=== PATIENT | female | born 1990 | race African-American/Black ===

== ENCOUNTER → 2018-02-23 | Day surgery (SDC) | payer OTHER ==
[~2018-02-23] MED LIST: MIRALAX17 GM PO; NEURONTIN300 MG PO; PERCOCET 5-3251 EACH PO; PRENATABS RX T1 EACH PO
== END | disposition home or self-care (01) ==
LOC: ADM 02-17 08:15 → CIR.AMB 06:54
DX: K43.6 Other and unspecified ventral hernia with obstruction, without gangrene (principal); M62.08 Separation of muscle (nontraumatic), other site

== ENCOUNTER 2019-06-21 09:38 | Day surgery (SDC) | payer OTHER | END 2019-06-21 15:40 | disposition home or self-care (01) | LOC: CIR.AMB 09:38 → ADM 06-24 11:30 | DX: O02.1 Missed abortion (principal) ==

== ENCOUNTER 2022-06-18 11:59 | Outpatient (CLI) | payer OTHER | END 2022-06-18 13:15 | disposition home or self-care (01) | LOC: PRENATAL 11:59 | PROVIDERS: ATTEND Obstetrics & Gynecology Maternal & Fetal Medicine | DX: O36.80X0 Pregnancy with inconclusive fetal viability, not applicable or unspecified (principal); Z3A.14 14 weeks gestation of pregnancy ==

== ENCOUNTER 2022-07-27 09:47 | Outpatient (CLI) | payer OTHER | END 2022-07-27 11:02 | disposition home or self-care (01) | LOC: PRENATAL 09:47 | PROVIDERS: ATTEND Obstetrics & Gynecology Maternal & Fetal Medicine | DX: O35.9XX0 Maternal care for (suspected) fetal abnormality and damage, unspecified, not applicable or unspecified (principal); O35.3XX0 Maternal care for (suspected) damage to fetus from viral disease in mother, not applicable or unspecified; O34.219 Maternal care for unspecified type scar from previous cesarean delivery; Z3A.20 20 weeks gestation of pregnancy ==

== ENCOUNTER 2022-10-21 09:43 | Outpatient (CLI) | payer OTHER | END 2022-10-21 10:20 | disposition home or self-care (01) | LOC: PRENATAL 09:43 | PROVIDERS: ATTEND Obstetrics & Gynecology Maternal & Fetal Medicine | DX: O26.849 Uterine size-date discrepancy, unspecified trimester (principal); O36.8199 Decreased fetal movements, unspecified trimester, other fetus; O34.219 Maternal care for unspecified type scar from previous cesarean delivery; Z3A.32 32 weeks gestation of pregnancy ==

== ENCOUNTER 2022-12-04 11:59 | Inpatient (IN) | payer OTHER ==
[~2022-12-04] VITALS: Ht 162.6 cm; Wt 3.2 kg
== END 2022-12-11 13:37 | disposition home or self-care (01) | DRG 788 ==
LOC: OB/GYN 12-09 09:30 → O/R 12-09 13:37 → OB/GYN 12-09 18:52
PROVIDERS: ADMIT Obstetrics & Gynecology; ATTEND Obstetrics & Gynecology
PROC: 4A1HXCZ Monitoring of Products of Conception, Cardiac Rate, External Approach (ICD-10-PCS; 2022-12-09)
PROC: 10D00Z1 Extraction of Products of Conception, Low, Open Approach (ICD-10-PCS; principal; 2022-12-09 14:00)
DX: O34.211 Maternal care for low transverse scar from previous cesarean delivery (principal); Z3A.39 39 weeks gestation of pregnancy; Z37.0 Single live birth; Z20.822 Contact with and (suspected) exposure to COVID-19